=== PATIENT | female | born 2000 | race Caucasian/White ===

== ENCOUNTER 2018-11-11 15:15 | Inpatient (IN) ==
[~2018-11-11 15:15] MED LIST: *HR* Nalbuphine 10 MG/ML AMPUL IVP PRN; Famotidine 20 MG/2 ML VIAL IVP PRN; Lidocaine 1% 20 ML MDV INFILT PRN; Metoclopramide 10 MG/2 ML VIAL IVP PRN; Naloxone 0.4 MG/ML INJ IVP PRN; Ondansetron 4 MG/2 ML VIAL IVP PRN; Ringers Solution, Lactated 1,000 ML IVC SCH
[2018-11-11] MEDS ORDERED: Penicillin G Potassium 5,000,000 UNIT in 0.9 % Sodium Chloride Mini Bag 100 ML IVPB ONE (15:18)
[2018-11-11] MEDS ORDERED: Ringers Solution, Lactated 1,000 ML ONE ×2 (15:22→15:26)
[2018-11-11 15:36] LABS: Basophils % 0.3 %; Eosinophils % 0.1 %; Hematocrit 41.8 % (35.3-44.9); Hemoglobin 13.9 g/dL (11.5-15.4); Immature Granulocytes % 0.4 % (0-4); Lymphocytes # 1.7 K/mcL (0.6-4.6); Lymphocytes % 14.5 %; Mean Corpuscular HGB Conc 33.3 g/dL (31.6-35.5); Mean Corpuscular Volume 87.3 fL (83.0-100.0); Mean Platelet Volume 10.9 fL (9.4-12.4); Monocytes # 0.6 K/mcL (0.0-1.3); Monocytes % 4.9 %; Neutrophils # 9.5 K/mcL (1.6-8.9); Platelet Count 189 K/mcL (140-400); Red Blood Count 4.79 M/mcL (3.82-4.97); Red Cell Distribution Width 13.2 % (11.5-14.5); Segmented Neutrophils % 79.8 %; White Blood Count 11.9 K/mcL (4.3-11.1)
[2018-11-11] MEDS ORDERED: Oxytocin 20 units/ LR 1000 mL 20 UNIT/1,000 ML BAG IVC ONE (15:37)
[2018-11-11] MEDS ORDERED: *HR* FentaNYL (PF) 100 MCG/2 ML VIAL ONE (15:43)
[2018-11-11] MEDS ORDERED: Bupivacaine-MPF 0.25% 10 ML VIAL ONE (15:43)
[2018-11-11] MEDS ORDERED: Epidural Premix (fent/bupiv) 0 ML EP ONE (15:44)
--- NOTE | 2018-11-11 16:31 | OB/GYN Procedure Note ---
Delivery - Delivery Date: 11/11/18 Provider: Josy Olivia Intrapartum events: precipitous labor- <3hr Delivery induction: none Delivery monitor: external FHT, external uterine, internal FHT Anesthesia: local Quantitated Blood Loss: 100 - Infant (s) A Infant Delivery Date: 11/11/18 Delivery Time: 15:56 Presentation: vertex Position: PAUL Route of delivery: Gender: Female Viability: Viable Pounds: 6 Ounces: 8 Weight Gram: 2960 kg at 1 minute: 6 at 5 mins: 9 Shoulder Dystocia: not encountered Specimens collected: cord blood Placenta: spontaneous Cord: nuchal cord (double ) - Repair Episiotomy: none Laceration Description: Vaginal - Complications Delivery complications: none Delivery comments: Admitted in spontaneous labor. On blocks, progressed to complete. Maternal ruth ring down efforts to of liveborn female. During pushing deceleration, Dr. Larsen called to bedside assisted with pushing and delivery of vertex, on emergence of vertex, I took over delivery. Vertex delivered PAUL, double nuchal cord identified and manually reduced, shoulders and body easily followed. No shoulder dystocia encountered. Limp placed on maternal abdomen umbilical cord immediately clamped and cut him and infant taken to radiant warmer by nursing staff. Apgars 6/9. Placenta delivered spontaneously (Santi) complete and intact upon inspection, sent for pathology. Vaginal laceration repair with 3-0 Monocryl. EBL 100 - Disposition Mom disposition: stable in LDR Brea disposition: stable in LDR
--- NOTE | 2018-11-11 16:52 | OB/GYN History & Physical ---
Date of Encounter: 11/11/18 Time of Encounter: 16:44 Assessment and Plan (1) 37 weeks gestation of Current visit: Yes Status: Acute (2) Active labor Current visit: Yes Status: Acute Admit to labor and delivery Nubain and epidural as desired Dr. Larsen updated as patient admission and history Anticipate . (3) History of inadequate care Current visit: Yes Status: Acute (4) Drug use affecting in third trimester Current visit: Yes Status: Acute Noted on records, the patient made to cocaine and methamphetamine use. We will obtain social work consult History of Present Illness Chief complaint: Introduction HPI: Ms. Ocampo is a 18 year old female 38+5 weeks gestation, presents to triage with complaints of contractions. Patient states she had contractions starting earlier this morning, and had a large gush of fluid and car on the way here, patient is writhing in the bed in pain. Reports good movement. Pr enatal care with Dr. Chappell. 4 visits noted on OB flowsheet, last visit 10/11/18. complications consisted of, admitted drug use of methamphetamines and cocaine. arrhythmia was referred to [facility] for echo, patient did not complete. Consistently measuring size less than dates. Labs: AB+, rubella immune, varicella nonimmune, GBS unknown, all other serologies negative Past Med Surg Social Fam HX - Past Medical History Medical history: no medical history Psychiatric history: no psych history - Past Surgical History Surgical History: non-contributory - Social History Smoking Status: Former smoker Alcohol use: none Drug use: none Obstetrical History - Pregnancies : 1 Para: 0 Term: 0 : 0 Ab's: 0 Livin Medications and Allergies [id number]/Iron Fumarate/FA/Dss [ 19 Tablet] 1 each PO DAILY #30 tablet 07/20/18 [Rx] Allergy/AdvReac Type Severity Reaction Status Date / Time No Known Allergies Allergy Verified 07/20/18 03:02 Exam - Constitutional Constitutional: well developed, no acute distress - Neck Neck exam: full ROM - Lungs Respiratory exam: CTAB - Cardiovascular Cardiovascular exam: RRR - Abdomen Abdomen: Present: gravid, non tender - Extremities Extremities exam: normal capillary refill, normal inspection - Cervix Dilation: 7 Effacement: 100 Station: -1 Results Result Diagrams: 11/11/18 15:15 Abnormal lab results WBC 11.9 K/mcL (4.3-11.1) H 11/11/18 15:15 Neutrophils # 9.5 K/mcL (1.6-8.9) H 11/11/18 15:15 All other labs normal. - VTE Reasons for not Prescribing Prophylaxis: Treatment not Indicated - Low risk for VTE
[2018-11-11] MEDS ORDERED: Acetaminophen 325 MG TABLET PO PRN (16:55)
[2018-11-11] MEDS ORDERED: Lanolin 7 G OINT...G. TP PRN (16:57)
[2018-11-11] MEDS ORDERED: Benzocaine/Menthol 56 GM AEROSOL SPRAY TP PRN (16:57)
[2018-11-11] MEDS ORDERED: Oxytocin 20 units/ LR 1000 mL 20 UNIT/1,000 ML BAG IVC SCH (17:00)
[2018-11-11] MEDS: Ibuprofen 600 MG TABLET PO PRN (19:41)
[2018-11-11] MEDS ORDERED: Penicillin G Potassium 2,500,000 UNIT in 0.9 % Sodium Chloride 100 ML IVPB SCH (20:00)
[2018-11-12 06:09] LABS: Basophils % 0.3 %; Eosinophils # 0.1 K/mcL (0.0-0.6); Eosinophils % 0.6 %; Hematocrit 35.6 % (35.3-44.9); Immature Granulocytes % 0.4 % (0-4); Lymphocytes # 2.5 K/mcL (0.6-4.6); Lymphocytes % 27.3 %; Mean Corpuscular HGB Conc 32.9 g/dL (31.6-35.5); Mean Corpuscular Hemoglobin 29.7 pg (28.0-33.3); Mean Corpuscular Volume 90.4 fL (83.0-100.0); Mean Platelet Volume 10.8 fL (9.4-12.4); Monocytes # 0.7 K/mcL (0.0-1.3); Monocytes % 7.8 %; Neutrophils # 5.8 K/mcL (1.6-8.9); Platelet Count 160 K/mcL (140-400); Red Blood Count 3.94 M/mcL (3.82-4.97); Red Cell Distribution Width 13.2 % (11.5-14.5); Segmented Neutrophils % 63.6 %; White Blood Count 9.1 K/mcL (4.3-11.1)
[2018-11-12 06:10] LABS: Hemoglobin 11.7 g/dL (11.5-15.4)
[2018-11-12] MEDS: Ibuprofen 600 MG TABLET PO PRN ×3 (07:47→20:56)
[2018-11-12] MEDS: Prenatal Vit/FA 1 EACH TABLET PO SCH (07:47)
--- NOTE | 2018-11-12 13:05 | OB/GYN Progress Note ---
Date of Encounter: 11/12/18 Time of Encounter: 13:03 - Assessment and Plan (1) Vaginal delivery Current Visit: Yes Status: Acute Meeting all day 1 milestones Continue routine Anticipate discharge home tomorrow Subjective - Subjective Principal diagnosis: s/p Patient reports: appetite normal, voiding normally, pain well controlled, ambulating normally : doing well, bottle feeding Objective - Latest Vital Signs Latest vital signs: Vital Signs Temp Pulse Resp BP Pulse Ox 11/12/18 11:30 97.8 F 66 16 108/74 11/12/18 04:35 97.6 F 83 16 114/66 98 11/11/18 21:30 97.7 F 70 16 111/76 98 11/11/18 20:30 97.8 F 82 16 116/79 98 11/11/18 19:35 97.8 F 87 16 136/88 99 Intake and Output 11/11/18 11/12/18 11/12/18 23:59 07:59 15:59 Other: # Voids 1 - Exam Lungs: bilateral: normal Chest: Normal S1, Normal S2 Extremities: Present: normal Abdomen: Present: normal appearance, soft Uterus: Present: firm Uterus Position: 2 Fingers Below Umbilicus, Midline - Labs Labs: Laboratory Results - last 24 hr 11/11/18 11/12/18 15:15 05:40 WBC 11.9 H 9.1 RBC 4.79 3.94 Hgb 13.9 11.7 D Hct 41.8 35.6 MCV 87.3 90.4 MCH 29.0 29.7 MCHC 33.3 32.9 RDW 13.2 13.2 Plt Count 189 160 MPV 10.9 10.8 Immature Gran % 0.4 0.4 Seg Neutrophils % 79.8 63.6 Lymphocytes % 14.5 27.3 Monocytes % 4.9 7.8 Eosinophils % 0.1 0.6 Basophils % 0.3 0.3 Neutrophils # 9.5 H 5.8 Lymphocytes # 1.7 2.5 Monocytes # 0.6 0.7 Eosinophils # 0.0 0.1 Basophils # 0.0 0.0
[2018-11-13 08:31] VITALS: BP 106/75
[2018-11-13] MEDS: Ibuprofen 600 MG TABLET PO PRN (09:06)
[2018-11-13] MEDS: Prenatal Vit/FA 1 EACH TABLET PO SCH (09:06)
--- NOTE | 2018-11-13 10:07 | Discharge Summary ---
Date of Encounter: 11/13/18 Time of Encounter: 10:05 - Discharge Diagnosis (1) Vaginal delivery Priority: Primary Status: Acute Comments: S/P Vaginal Delivery Day 2. VSS Pain is well controlled Lochia is light and without clots Tolerating regular diet, passing flatus Voiding without difficulty Bottle feeding Discharge to guest today POC per consult with Dr Lee - Discharge Medications Prescriptions: New Ibuprofen [Motrin] 600 mg PO Q6HR PRN #60 tab PRN Reason: cramping No Action [id number]/Iron Fumarate/FA/Dss [ 19 Tablet] 1 each PO DAILY #30 tablet Home Medications: [id number]/Iron Fumarate/FA/Dss [ 19 Tablet] 1 each PO DAILY #30 tablet 07/20/18 [Rx] Ibuprofen [Motrin] 600 mg PO Q6HR PRN #60 tab 11/12/18 [Rx] Allergies/Adverse Reactions: Allergy/AdvReac Type Severity Reaction Status Date / Time No Known Allergies Allergy Verified 07/20/18 03:02 Data Procedures and tests throughout hospitalization: Laboratory Tests 11/11/18 11/12/18 15:15 05:40 WBC 11.9 H 9.1 RBC 4.79 3.94 Hgb 13.9 11.7 D Hct 41.8 35.6 MCV 87.3 90.4 MCH 29.0 29.7 MCHC 33.3 32.9 RDW 13.2 13.2 Plt Count 189 160 MPV 10.9 10.8 Immature Gran % 0.4 0.4 Seg Neutrophils % 79.8 63.6 Lymphocytes % 14.5 27.3 Monocytes % 4.9 7.8 Eosinophils % 0.1 0.6 Basophils % 0.3 0.3 Neutrophils # 9.5 H 5.8 Lymphocytes # 1.7 2.5 Monocytes # 0.6 0.7 Eosinophils # 0.0 0.1 Basophils # 0.0 0.0 Date of admission: 11/11/18 15:15 Primary care physician: PCP NONE Consults: 11/11/18 16:55 Consult to Application Project Leader [CONS] Routine Comment: Vaginal delivery, consult needed Consult to Overlock Sewing Machine Operator [CONS] Routine Reason for SW Consult: admitted in visits to drug use. Discharging clinician: Lakia Lara Anticipated date of discharge: 11/13/18 - Patient Status Disposition: Home, Self-Care Condition: Good Functional capacity at discharge: independent ambulation Overall status at discharge: patient is progressing back to baseline - Discharge Instructions Follow Up With: NONE,PCP [Primary Care Provider] - Josy Olivia CNM [Advanced Practice Nurse] - - Diet and Activity Activity: increase activity as tolerated Diet: regular diet Hospital Course Reason for admission: IUP at term Delivery: Episiotomy: none Laceration: vaginal side wall Other procedures: none complications: none Discharge diagnosis: IUP at term delivered [place] baby: female Time spent discussing smoking cessation with patient: 3 to 10 minutes Time Attestation: Total time spent providing and/or coordinating discharge services: Time Spent: Less than 30 minutes Exam - Constitutional Vitals: Temp Pulse Resp BP Pulse Ox 97.8 F 62 16 106/75 95 11/13/18 08:30 11/13/18 08:30 11/13/18 08:30 11/13/18 08:30 11/13/18 08:30 General appearance IM: cooperative, A&O X 3, pleasant - Respiratory Respiratory exam: Present: CTAB - Cardiovascular Cardiovascular exam IM: Present: RRR, +S1, +S2. Absent: irregular rhythm - GI/Abdominal GI/Abdominal exam IM: normal bowel sounds - Rectal Rectal exam: deferred - Uterine Tone: Firm Uterus Position: 2 Fingers Below Umbilicus, Midline - Extremities Exam Extremities exam IM: Present: normal inspection, radial pulses palpable and symmetrical. Absent: calf tenderness - Neurological Exam Neurological exam: alert, oriented X3
== END 2018-11-13 13:43 | disposition home or self-care (01) | DRG 560 ==
LOC: 1NENULAB → 1NENUOBS 20:36
PROVIDERS: ADMIT Advanced Practice Midwife; ATTEND Advanced Practice Midwife

== ENCOUNTER → 2020-11-26 20:22 | Observation (INO) ==
[2020-11-26 20:24] LABS: Bacteria,Urine Few per hpf (None-Few); Bilirubin,Urine Negative (Negative); Blood,Urine Negative (Negative); Clarity,Urine Turbid (Clear); Color,Urine Yellow (Yellow); Glucose,Urine (UA) Normal (Normal); Ketones,Urine Negative (Negative); Leukocyte Esterase,Urine Large (Negative); Mucus,Urine Few per lpf (None-Few); Nitrite,Urine Negative (Negative); Protein,Urine 30 mg/dL (Neg-Trace); RBC,Urine 50-100 per hpf (0-3); Specific Gravity,Urine > 1.030 (1.010-1.025); Squamous Epithelial Cell,Urine Moderate per hpf (None-Few); Urobilinogen,Urine Normal (Normal); WBC,Urine TNTC per hpf (0-3)
[2020-11-26 20:46] LABS: Basophils % 0.2 %; Eosinophils # 0.1 K/mcL (0.0-0.6); Eosinophils % 1.3 %; Hematocrit 30.2 % (35.3-44.9); Hemoglobin 9.4 g/dL (11.5-15.4); Immature Granulocytes % 0.3 % (0-4); Lymphocytes # 2.5 K/mcL (0.6-4.6); Lymphocytes % 28.6 %; Mean Corpuscular HGB Conc 31.1 g/dL (31.6-35.5); Mean Corpuscular Hemoglobin 27.7 pg (28.0-33.3); Mean Corpuscular Volume 89.1 fL (83.0-100.0); Mean Platelet Volume 9.6 fL (9.4-12.4); Monocytes # 0.5 K/mcL (0.0-1.3); Monocytes % 5.1 %; Neutrophils # 5.7 K/mcL (1.6-8.9); Platelet Count 219 K/mcL (140-400); Red Blood Count 3.39 M/mcL (3.82-4.97); Red Cell Distribution Width 16.1 % (11.5-14.5); Segmented Neutrophils % 64.5 %; White Blood Count 8.9 K/mcL (4.3-11.1)
[2020-11-26 21:42] LABS: Hepatitis B Surface Antigen Nonreactive (Nonreactive)
[2020-11-26 22:11] LABS: HIV-1&2 Antibody & p24 Ag Nonreactive (Nonreactive)
[2020-11-26 23:20] LABS: Gardnerella DNA DETECTED (Not Detect); Trichomonas DNA DETECTED (Not Detect)
[2020-11-26 23:21] LABS: Candida DNA Not Detected (Not Detect)
[2020-11-27 00:01] LABS: Rubella IgG Antibody POSITIVE (POSITIVE); Varicella Zoster IgG Antibody Negative
== END | disposition home or self-care (01) ==
LOC: 1NENULAB
PROVIDERS: ADMIT Student in an Organized Health Care Education/Training Program; ATTEND Student in an Organized Health Care Education/Training Program

== ENCOUNTER 2020-12-05 19:39 | Observation (INO) ==
[2020-12-05] MEDS ORDERED: FLU Vac QV 21-22 (6Month+)/PF 0.5 ML SYRINGE IM ONE (20:11)
[2020-12-05 20:36] LABS: Bilirubin,Urine Negative (Negative); Blood,Urine Negative (Negative); Clarity,Urine Turbid (Clear); Color,Urine Light-Yellow (Yellow); Glucose,Urine (UA) Normal (Normal); Ketones,Urine Negative (Negative); Leukocyte Esterase,Urine Large (Negative); Mucus,Urine Few per lpf (None-Few); Nitrite,Urine Negative (Negative); Protein,Urine Trace mg/dL (Neg-Trace); Specific Gravity,Urine 1.023 (1.010-1.025); Squamous Epithelial Cell,Urine Moderate per hpf (None-Few); Urobilinogen,Urine Normal (Normal); WBC,Urine 15-30 per hpf (0-3)
[2020-12-05] MEDS ORDERED: metroNIDAZOLE 500 MG TABLET PO ONE (20:57)
[2020-12-05 21:36] LABS: Amphetamine Screen,Urine Negative ng/mL (Cutoff=1000); Barbiturate Screen,Urine Negative ng/mL (Cutoff=200); Benzodiazepines Screen,Urine Negative ng/mL (Cutoff=200); Cannabinoid Screen,Urine Negative ng/mL (Cutoff = 50); Cocaine Screen,Urine Negative ng/mL (Cutoff= 300); Opiate Screen,Urine Negative ng/mL (Cutoff=300); Phencyclidine Screen,Urine Negative ng/mL (Cutoff=25)
== END 2020-12-05 20:20 | disposition home or self-care (01) ==
LOC: 1NENULAB
PROVIDERS: ADMIT Registered Nurse; ATTEND Registered Nurse

== ENCOUNTER → 2020-12-07 13:45 | Observation (INO) ==
[2020-12-07 11:49] LABS: Bilirubin,Urine Negative (Negative); Blood,Urine Negative (Negative); Clarity,Urine Clear (Clear); Color,Urine Colorless (Yellow); Glucose,Urine (UA) Normal (Normal); Ketones,Urine Negative (Negative); Leukocyte Esterase,Urine Trace (Negative); Mucus,Urine Few per lpf (None-Few); Nitrite,Urine Negative (Negative); PH,Urine 6.5 pH Units (5.0-8.0); Protein,Urine Negative (Neg-Trace); RBC,Urine 0-3 per hpf (0-3); Specific Gravity,Urine 1.006 (1.010-1.025); Squamous Epithelial Cell,Urine Few per hpf (None-Few); Urobilinogen,Urine Normal (Normal)
[2020-12-07 12:09] LABS: Amphetamine Screen,Urine Negative ng/mL (Cutoff=1000); Barbiturate Screen,Urine Negative ng/mL (Cutoff=200); Benzodiazepines Screen,Urine Negative ng/mL (Cutoff=200); Cannabinoid Screen,Urine Negative ng/mL (Cutoff = 50); Cocaine Screen,Urine Negative ng/mL (Cutoff= 300); Opiate Screen,Urine Negative ng/mL (Cutoff=300); Phencyclidine Screen,Urine Negative ng/mL (Cutoff=25)
[2020-12-07 12:24] LABS: Influenza A PCR Negative (Negative); Influenza B PCR Negative (Negative); Resp. Syncytial Virus PCR Negative (Negative)
[2020-12-07 12:53] LABS: SARS-CoV-2 by PCR (In House) Negative (Negative)
[~2020-12-07 13:45] MED LIST changes: -*HR* Nalbuphine 10 MG/ML AMPUL IVP PRN; +Betamethasone Acet/SodPhos 30 MG/5 ML VIAL IM SCH; -Famotidine 20 MG/2 ML VIAL IVP PRN; -Lidocaine 1% 20 ML MDV INFILT PRN; +Magnesium Sulf 20 gm/SW 500mL 20 GM/500 ML IV.SOLN IVC SCH; -Metoclopramide 10 MG/2 ML VIAL IVP PRN; -Naloxone 0.4 MG/ML INJ IVP PRN; +Nitrofurantoin (BID) 100 MG CAPSULE PO SCH; -Ondansetron 4 MG/2 ML VIAL IVP PRN; -Ringers Solution, Lactated 1,000 ML IVC SCH; +Ringers Solution, Lactated 1,000 ML ONE
== END | disposition short-term general hospital (02) ==
LOC: 1NENULAB
PROVIDERS: ADMIT Advanced Practice Midwife; ATTEND Advanced Practice Midwife